=== PATIENT | male | born 1935 | race Caucasian/White ===

== ENCOUNTER 2023-02-18 14:20 | Inpatient (IN) | payer MEDICARE, OTHER ==
[~2023-02-18] VITALS: Ht 165.1 cm; Wt 70.3 kg
[2023-02-18] MEDS ORDERED: FEBU40TA PO (15:08)
[2023-02-18] MEDS ORDERED: DICL100G34 TP (15:08)
[2023-02-18] MEDS ORDERED: POTA8TAB3 PO (15:08)
[2023-02-18] MEDS ORDERED: CLOP75TA15 PO (15:08)
[2023-02-18] MEDS ORDERED: EPOE200011 SQ (15:08)
[2023-02-18] MEDS ORDERED: LANS30CA56 PO (15:08)
[2023-02-18] MEDS ORDERED: ASPI-1169 PO (15:08)
[2023-02-18] MEDS ORDERED: ESCI20TA PO (15:08)
[2023-02-18] MEDS ORDERED: EVOL140S2 SQ (15:08)
[2023-02-18] MEDS ORDERED: BUDE10.26 INH (15:08)
[2023-02-18] MEDS ORDERED: GUAI100S11 PO (15:08)
[2023-02-18] MEDS ORDERED: DOCU-141 PO (15:08)
[2023-02-18] MEDS ORDERED: LIPA1CAP15 PO (15:08)
[2023-02-18] MEDS ORDERED: BISA10SU11 RC (15:08)
[2023-02-18] MEDS ORDERED: NITR0.4T48 SL (15:08)
[2023-02-18] MEDS ORDERED: ACLI1AER INH (15:08)
[2023-02-18] MEDS ORDERED: LORA-258 PO (15:08)
[2023-02-18] MEDS ORDERED: NA P133E RC (15:08)
[2023-02-18] MEDS ORDERED: NYST15CR TP (15:08)
[2023-02-18] MEDS ORDERED: CARV10CP PO (15:08)
[2023-02-18] MEDS ORDERED: ACET-868 PO (15:08)
[2023-02-18] MEDS ORDERED: BISA5TAB10 PO (15:08)
[2023-02-18] MEDS ORDERED: BUME2TAB7 PO (15:08)
[2023-02-18] MEDS ORDERED: LINA5TAB PO (15:08)
[2023-02-18] MEDS ORDERED: ERGO500093 PO (15:08)
[2023-02-18] MEDS ORDERED: NITR1PAT65 TP (15:08)
[2023-02-18] MEDS ORDERED: AMLO-213 PO (15:08)
[2023-02-18] MEDS ORDERED: COLE625T9 PO (15:08)
[2023-02-18] MEDS ORDERED: IPRA3AMP23 IH (15:08)
[2023-02-18] MEDS ORDERED: MELA5TAB PO (15:08)
[2023-02-18] MEDS ORDERED: MAGN400O6 PO (15:08)
[2023-02-18] MEDS ORDERED: LINA290C PO (15:08)
[2023-02-18] MEDS ORDERED: TRAZ-182 PO (15:08)
[2023-02-18] MEDS ORDERED: RANO10003 PO (15:08)
[2023-02-18 15:16] LABS: BASOPHILS % (AUTO) 0.3 % (0.0-2.0); EOSINOPHILS % (AUTO) 0.4 % (0.0-6.0); HEMATOCRIT 37 % (39-51); HEMOGLOBIN 11.8 g/dL (13.5-17.5); LYMPHOCYTES # (AUTO) 1.6 K/uL (0.8-4.8); LYMPHOCYTES % (AUTO) 22.7 % (20.0-44.0); MEAN CORPUSCULAR HEMOGLOBIN 27 PG (26.0-33.0); MEAN CORPUSCULAR HGB CONC 32 g/dl (31.0-36.0); MEAN CORPUSCULAR VOLUME 84 fL (80-96); MONOCYTES # (AUTO) 0.5 K/uL (0.1-1.30); MONOCYTES % (AUTO) 7.5 % (2.0-12.0); NEUTROPHILS # (AUTO) 4.9 K/uL (1.8-8.9); NEUTROPHILS % (AUTO) 69.1 % (43.0-81.0); PLATELET COUNT (AUTO) 243 K/uL (150-450); RED BLOOD CELL COUNT(AUTO) 4.34 MIL/uL (4.5-6.0); WHITE BLOOD COUNT (AUTO) 7.1 K/uL (4.3-11.0)
[2023-02-18 15:30] LABS: CALCIUM, SERUM 9.7 mg/dL (8.5-10.1); CARBON DIOXIDE 27 mmol/L (21-32); CHLORIDE 100 mmol/L (98-107); CREATININE 1.4 mg/dL (0.6-1.3); GLUCOSE 166 mg/dL (74-106); POTASSIUM 3.6 mmol/L (3.5-5.1); SODIUM SERUM 137 mmol/L (136-145); UREA NITROGEN, BLOOD 19 mg/dL (7-18)
[2023-02-18 15:45] LABS: ALANINE AMINOTRANSFERASE 15 U/L (12-78); ALBUMIN 4.3 g/dL (3.4-5.0); ALKALINE PHOSPHATASE 63 U/L (46-116); ASPARTATE AMINOTRANSFERASE 14 U/L (15-37); BILIRUBIN,DIRECT 0.3 mg/dL (0.0-0.2); BILIRUBIN,TOTAL 1.3 mg/dL (0.2-1.0); TOTAL PROTEIN, SERUM 8.7 g/dL (6.4-8.2)
[2023-02-18 15:46] LABS: ACETAMINOPHEN <10 ug/ml (10-30); ALCOHOL, BLOOD < 3 mg/dL (0-10); SALICYLATE 0.3 mg/dL (2.8-20.0)
[2023-02-18] MEDS ORDERED: NA PHOS,M-B/NA PHOS,DI-BA 1 EA ENEMA RC PRN (16:30)
[2023-02-18] MEDS ORDERED: NITROGLYCERIN 0.4 MG/TAB BOTTLE SL PRN (16:30)
[2023-02-18] MEDS: ASPIRIN 81 MG TAB.CHEW PO SCH ×2 (16:30→19:50)
[2023-02-18] MEDS ORDERED: DEXTROSE 50%-WATER 50 ML DISP.SYRIN IV PRN (16:30)
[2023-02-18] MEDS ORDERED: WELCHOL XX SCH (16:30)
[2023-02-18] MEDS ORDERED: MAGNESIUM HYDROXIDE 30 ML UDC PO PRN ×2 (16:30→19:00)
[2023-02-18] MEDS ORDERED: IPRATROPIUM/ALBUTEROL INHALER IH PRN (16:30)
[2023-02-18] MEDS ORDERED: GUAIFENESIN 300 MG/15 ML UDC PO PRN (16:30)
[2023-02-18] MEDS ORDERED: ACETAMINOPHEN 325 MG TABLET PO PRN ×2 (16:30→19:00)
[2023-02-18] MEDS: BUMETANIDE (1 MG) 1 MG TABLET PO SCH ×2 (16:30→19:50)
[2023-02-18] MEDS ORDERED: BISACODYL SUPP (10 MG) 10 MG/SUPP.RECT SUPP.RECT RC PRN (16:30)
[2023-02-18] MEDS: BLOOD SUGAR DIAGNOSTIC 1 EACH STRIP IN SCH ×2 (17:30→21:40)
[2023-02-18 18:50] VITALS: BP 153/85; TEMP 98.1; O2SAT 100
[2023-02-18] MEDS ORDERED: MAG HYDROX/AL HYDROX/SIMETH 30 ML UDC PO PRN (19:00)
[2023-02-18] MEDS ORDERED: BLOOD SUGAR DIAGNOSTIC 1 EACH STRIP IN ONE (19:00)
[2023-02-18] MEDS: IPRATROPIUM NEB FS 0.5 MG/2.5 ML AMPUL.NEB NEB SCH (19:30)
[2023-02-18] MEDS: ALBUTEROL FS 2.5 MG/3 ML VIAL.NEB NEB SCH (19:30)
[2023-02-18] MEDS: BISACODYL (5 MG) 5 MG TABLET.DR PO SCH ×2 (19:50→19:55)
[2023-02-18] MEDS: ZOLPIDEM TARTRATE 5 MG TABLET PO PRN (20:03)
[2023-02-18] MEDS: CARVEDILOL 6.25 MG TABLET PO SCH (20:06)
[2023-02-18] MEDS: INSULIN REGULAR, HUMAN 100 UNIT/ML 3 ML VIAL SQ PRN (21:42)
[2023-02-19] VITALS (11 sets, daily range): BP systolic 121–160; BP diastolic 67–76; TEMP 98.4–98.7; O2SAT 93–100
[2023-02-19] MEDS: ALBUTEROL FS 2.5 MG/3 ML VIAL.NEB NEB SCH ×4 (00:36→20:20)
[2023-02-19] MEDS: IPRATROPIUM NEB FS 0.5 MG/2.5 ML AMPUL.NEB NEB SCH ×4 (00:36→20:20)
[2023-02-19] MEDS: LORAZEPAM 0.5 MG TABLET PO PRN ×3 (03:48→21:18)
[2023-02-19 07:49] LABS: ALANINE AMINOTRANSFERASE 15 U/L (12-78); ALBUMIN 3.8 g/dL (3.4-5.0); ALKALINE PHOSPHATASE 52 U/L (46-116); ASPARTATE AMINOTRANSFERASE 18 U/L (15-37); BILIRUBIN,TOTAL 1.2 mg/dL (0.2-1.0); CALCIUM, SERUM 9.3 mg/dL (8.5-10.1); CARBON DIOXIDE 25 mmol/L (21-32); CHLORIDE 101 mmol/L (98-107); CHOLESTEROL 205 mg/dL (<200); CREATININE 1.4 mg/dL (0.6-1.3); GLUCOSE 135 mg/dL (74-106); HDL CHOLESTEROL 68 mg/dL (40-60); LDL 112 mg/dL (0-99); POTASSIUM 3.5 mmol/L (3.5-5.1); SODIUM SERUM 136 mmol/L (136-145); TOTAL PROTEIN, SERUM 7.7 g/dL (6.4-8.2); TRIGLYCERIDES 52 mg/dL (30-150); UREA NITROGEN, BLOOD 24 mg/dL (7-18)
[2023-02-19] MEDS ORDERED: POTASSIUM CHLORIDE 10 MEQ TABLET.SA PO SCH (09:00)
[2023-02-19] MEDS: BLOOD SUGAR DIAGNOSTIC 1 EACH STRIP IN SCH ×4 (09:44→22:05)
[2023-02-19] MEDS: LIPASE/PROTEASE/AMYLASE 1 EACH CAPSULE.DR PO SCH ×3 (09:44→17:58)
[2023-02-19] MEDS: ASPIRIN 81 MG TAB.CHEW PO SCH (09:45)
[2023-02-19] MEDS: DOCUSATE SODIUM 100 MG CAPSULE PO SCH (09:45)
[2023-02-19] MEDS: CARVEDILOL 6.25 MG TABLET PO SCH ×2 (09:45→21:18)
[2023-02-19] MEDS: BISACODYL (5 MG) 5 MG TABLET.DR PO SCH ×2 (09:45→16:21)
[2023-02-19] MEDS: CLOPIDOGREL BISULFATE 75 MG TABLET PO SCH (09:46)
[2023-02-19] MEDS: NITROGLYCERIN PATCH 0.2 MG/HR PATCH.TD24 TD SCH (09:51)
[2023-02-19] MEDS: LINAGLIPTIN 5 MG TABLET PO SCH (09:51)
[2023-02-19] MEDS: AMLODIPINE BESYLATE 10 MG TABLET PO SCH (09:52)
[2023-02-19 11:49] LABS: THYROID STIMULATING HORMONE 1.158 uIU/mL (0.358-3.74)
[2023-02-19] MEDS: INSULIN REGULAR, HUMAN 100 UNIT/ML 3 ML VIAL SQ PRN ×2 (11:59→22:07)
[2023-02-19] MEDS: ESCITALOPRAM OXALATE (10 MG) 10 MG TABLET PO SCH (12:18)
[2023-02-19] MEDS: RANOLAZINE 500 MG TAB.ER.12H PO SCH (21:00)
[2023-02-19] MEDS: MIRTAZAPINE 15 MG TABLET PO SCH (21:18)
[2023-02-19] MEDS: ZOLPIDEM TARTRATE 5 MG TABLET PO PRN (22:56)
[2023-02-20] MEDS: IPRATROPIUM NEB FS 0.5 MG/2.5 ML AMPUL.NEB NEB SCH ×4 (01:30→19:30)
[2023-02-20] MEDS: ALBUTEROL FS 2.5 MG/3 ML VIAL.NEB NEB SCH ×5 (01:30→20:24)
[2023-02-20 05:07] LABS: FOLIC ACID 11.5 ng/mL (>3.0)
[2023-02-20] MEDS: BLOOD SUGAR DIAGNOSTIC 1 EACH STRIP IN SCH ×4 (07:30→21:56)
[2023-02-20 08:00] VITALS: BP 148/77; TEMP 97.7; O2SAT 98
[2023-02-20] MEDS: LINAGLIPTIN 5 MG TABLET PO SCH (08:23)
[2023-02-20] MEDS: PANTOPRAZOLE 40 MG TABLET.DR PO SCH (08:23)
[2023-02-20] MEDS: DOCUSATE SODIUM 100 MG CAPSULE PO SCH (08:23)
[2023-02-20] MEDS: CARVEDILOL 6.25 MG TABLET PO SCH ×2 (08:24→20:44)
[2023-02-20] MEDS: LIPASE/PROTEASE/AMYLASE 1 EACH CAPSULE.DR PO SCH ×3 (08:24→17:20)
[2023-02-20] MEDS: RANOLAZINE 500 MG TAB.ER.12H PO SCH ×2 (08:25→21:07)
[2023-02-20] MEDS: BISACODYL (5 MG) 5 MG TABLET.DR PO SCH ×2 (08:25→17:20)
[2023-02-20] MEDS: ESCITALOPRAM OXALATE (10 MG) 10 MG TABLET PO SCH (08:25)
[2023-02-20] MEDS: AMLODIPINE BESYLATE 10 MG TABLET PO SCH (08:25)
[2023-02-20] MEDS: CLOPIDOGREL BISULFATE 75 MG TABLET PO SCH (08:25)
[2023-02-20] MEDS ORDERED: Medication Not On Formulary EA (Linaclotide (Linzess) 290 MCG) PO SCH (09:00)
[2023-02-20] MEDS: NITROGLYCERIN PATCH 0.2 MG/HR PATCH.TD24 TD SCH (10:06)
[2023-02-20 13:35] VITALS: O2SAT 98
[2023-02-20 13:45] VITALS: O2SAT 98; O2SAT 99
[2023-02-20 16:00] VITALS: BP 120/71; TEMP 97.8; O2SAT 98
[2023-02-20] MEDS: BUMETANIDE (1 MG) 1 MG TABLET PO SCH (16:50)
[2023-02-20] MEDS: ASPIRIN 81 MG TAB.CHEW PO SCH (16:50)
[2023-02-20 20:55] VITALS: BP 135/80; TEMP 98.6; O2SAT 97
[2023-02-20] MEDS: MIRTAZAPINE 15 MG TABLET PO SCH (21:07)
[2023-02-20] MEDS: ZOLPIDEM TARTRATE 5 MG TABLET PO PRN (21:31)
[2023-02-20] MEDS: INSULIN REGULAR, HUMAN 100 UNIT/ML 3 ML VIAL SQ PRN (21:52)
[2023-02-21] MEDS: ALBUTEROL FS 2.5 MG/3 ML VIAL.NEB NEB SCH ×4 (01:30→19:30)
[2023-02-21] MEDS: IPRATROPIUM NEB FS 0.5 MG/2.5 ML AMPUL.NEB NEB SCH ×4 (01:30→19:30)
[2023-02-21] MEDS: BLOOD SUGAR DIAGNOSTIC 1 EACH STRIP IN SCH ×4 (06:52→22:05)
[2023-02-21] MEDS: INSULIN REGULAR, HUMAN 100 UNIT/ML 3 ML VIAL SQ PRN ×3 (06:53→17:29)
[2023-02-21] MEDS: PANTOPRAZOLE 40 MG TABLET.DR PO SCH (07:26)
[2023-02-21 08:00] VITALS: BP 119/73; TEMP 98.1; O2SAT 99
[2023-02-21] MEDS: LIPASE/PROTEASE/AMYLASE 1 EACH CAPSULE.DR PO SCH ×3 (08:13→17:25)
[2023-02-21] MEDS: CLOPIDOGREL BISULFATE 75 MG TABLET PO SCH (08:13)
[2023-02-21] MEDS: AMLODIPINE BESYLATE 10 MG TABLET PO SCH (08:13)
[2023-02-21] MEDS: BISACODYL (5 MG) 5 MG TABLET.DR PO SCH ×2 (08:13→17:24)
[2023-02-21] MEDS: RANOLAZINE 500 MG TAB.ER.12H PO SCH ×2 (08:13→20:51)
[2023-02-21] MEDS: ESCITALOPRAM OXALATE (10 MG) 10 MG TABLET PO SCH (08:14)
[2023-02-21] MEDS: CARVEDILOL 6.25 MG TABLET PO SCH ×2 (08:14→20:50)
[2023-02-21] MEDS: DOCUSATE SODIUM 100 MG CAPSULE PO SCH (08:14)
[2023-02-21] MEDS: LINAGLIPTIN 5 MG TABLET PO SCH (08:14)
[2023-02-21] MEDS: NITROGLYCERIN PATCH 0.2 MG/HR PATCH.TD24 TD SCH (08:17)
[2023-02-21 16:00] VITALS: BP 113/60; TEMP 98.2; O2SAT 96
[2023-02-21] MEDS: ZOLPIDEM TARTRATE 5 MG TABLET PO PRN (19:25)
[2023-02-21 20:00] VITALS: BP 150/73; TEMP 98.4; O2SAT 95
[2023-02-21] MEDS: MIRTAZAPINE 15 MG TABLET PO SCH (21:52)
[2023-02-22] MEDS: ALBUTEROL FS 2.5 MG/3 ML VIAL.NEB NEB SCH ×4 (00:58→19:30)
[2023-02-22] MEDS: IPRATROPIUM NEB FS 0.5 MG/2.5 ML AMPUL.NEB NEB SCH ×4 (00:58→19:30)
[2023-02-22] MEDS: BLOOD SUGAR DIAGNOSTIC 1 EACH STRIP IN SCH ×4 (07:32→21:59)
[2023-02-22] MEDS: INSULIN REGULAR, HUMAN 100 UNIT/ML 3 ML VIAL SQ PRN ×3 (07:33→22:02)
[2023-02-22] MEDS: PANTOPRAZOLE 40 MG TABLET.DR PO SCH (07:56)
[2023-02-22] MEDS: LIPASE/PROTEASE/AMYLASE 1 EACH CAPSULE.DR PO SCH ×3 (07:56→17:06)
[2023-02-22 08:00] VITALS: BP 119/63; TEMP 98; O2SAT 98
[2023-02-22] MEDS: DOCUSATE SODIUM 100 MG CAPSULE PO SCH (08:38)
[2023-02-22] MEDS: CLOPIDOGREL BISULFATE 75 MG TABLET PO SCH (08:38)
[2023-02-22] MEDS: RANOLAZINE 500 MG TAB.ER.12H PO SCH ×2 (08:38→21:12)
[2023-02-22] MEDS: ESCITALOPRAM OXALATE (10 MG) 10 MG TABLET PO SCH (08:39)
[2023-02-22] MEDS: CARVEDILOL 6.25 MG TABLET PO SCH ×2 (08:39→21:12)
[2023-02-22] MEDS: AMLODIPINE BESYLATE 10 MG TABLET PO SCH (08:39)
[2023-02-22] MEDS: NITROGLYCERIN PATCH 0.2 MG/HR PATCH.TD24 TD SCH (08:43)
[2023-02-22] MEDS: BISACODYL (5 MG) 5 MG TABLET.DR PO SCH ×2 (08:43→17:06)
[2023-02-22] MEDS: LINAGLIPTIN 5 MG TABLET PO SCH (08:43)
[2023-02-22 16:00] VITALS: BP 122/58; TEMP 97.6; O2SAT 100
[2023-02-22] MEDS: BUMETANIDE (1 MG) 1 MG TABLET PO SCH (17:04)
[2023-02-22] MEDS: ASPIRIN 81 MG TAB.CHEW PO SCH (17:04)
[2023-02-22] MEDS: ERGOCALCIFEROL (VITAMIN D 2) 50,000 UNIT CAPSULE PO SCH (17:04)
[2023-02-22 20:00] VITALS: BP 138/67; TEMP 97.8; O2SAT 99
[2023-02-22] MEDS: MIRTAZAPINE 15 MG TABLET PO SCH (21:13)
[2023-02-23] MEDS: ALBUTEROL FS 2.5 MG/3 ML VIAL.NEB NEB SCH ×4 (01:30→20:26)
[2023-02-23] MEDS: IPRATROPIUM NEB FS 0.5 MG/2.5 ML AMPUL.NEB NEB SCH ×4 (01:30→20:26)
[2023-02-23 07:19] LABS: BASOPHILS % (AUTO) 0.3 % (0.0-2.0); EOSINOPHILS # (AUTO) 0.2 K/uL (0.0-0.7); EOSINOPHILS % (AUTO) 3.1 % (0.0-6.0); HEMATOCRIT 33 % (39-51); HEMOGLOBIN 10.5 g/dL (13.5-17.5); LYMPHOCYTES # (AUTO) 1.5 K/uL (0.8-4.8); LYMPHOCYTES % (AUTO) 28.1 % (20.0-44.0); MEAN CORPUSCULAR HEMOGLOBIN 27 PG (26.0-33.0); MEAN CORPUSCULAR HGB CONC 32 g/dl (31.0-36.0); MEAN CORPUSCULAR VOLUME 85 fL (80-96); MONOCYTES # (AUTO) 0.5 K/uL (0.1-1.30); MONOCYTES % (AUTO) 8.7 % (2.0-12.0); NEUTROPHILS # (AUTO) 3.2 K/uL (1.8-8.9); NEUTROPHILS % (AUTO) 59.8 % (43.0-81.0); PLATELET COUNT (AUTO) 178 K/uL (150-450); RED BLOOD CELL COUNT(AUTO) 3.85 MIL/uL (4.5-6.0); RED CELL DISTRIBUTION WIDTH 18.7 % (11.5-15.0); WHITE BLOOD COUNT (AUTO) 5.3 K/uL (4.3-11.0)
[2023-02-23 07:56] LABS: CREATINE KINASE, TOTAL 39 U/L (39-308)
[2023-02-23 07:59] LABS: ALANINE AMINOTRANSFERASE 14 U/L (12-78); ALBUMIN 3.1 g/dL (3.4-5.0); ALKALINE PHOSPHATASE 49 U/L (46-116); ASPARTATE AMINOTRANSFERASE 11 U/L (15-37); BILIRUBIN,TOTAL 0.9 mg/dL (0.2-1.0); CARBON DIOXIDE 29 mmol/L (21-32); CHLORIDE 101 mmol/L (98-107); CREATININE 1.6 mg/dL (0.6-1.3); GLUCOSE 100 mg/dL (74-106); MAGNESIUM 1.8 mg/dL (1.8-2.4); PHOSPHORUS 4.1 mg/dL (2.5-4.9); POTASSIUM 3.1 mmol/L (3.5-5.1); SODIUM SERUM 140 mmol/L (136-145); TOTAL PROTEIN, SERUM 6.6 g/dL (6.4-8.2); UREA NITROGEN, BLOOD 31 mg/dL (7-18)
[2023-02-23 08:00] VITALS: BP 153/69; TEMP 97.8; O2SAT 97
[2023-02-23] MEDS: BLOOD SUGAR DIAGNOSTIC 1 EACH STRIP IN SCH ×4 (08:15→22:44)
[2023-02-23] MEDS: LIPASE/PROTEASE/AMYLASE 1 EACH CAPSULE.DR PO SCH ×3 (08:18→17:21)
[2023-02-23] MEDS: ESCITALOPRAM OXALATE (10 MG) 10 MG TABLET PO SCH (08:19)
[2023-02-23] MEDS: LINAGLIPTIN 5 MG TABLET PO SCH (08:19)
[2023-02-23] MEDS: PANTOPRAZOLE 40 MG TABLET.DR PO SCH (08:19)
[2023-02-23] MEDS: CARVEDILOL 6.25 MG TABLET PO SCH ×2 (08:19→20:36)
[2023-02-23] MEDS: DOCUSATE SODIUM 100 MG CAPSULE PO SCH (08:19)
[2023-02-23] MEDS: AMLODIPINE BESYLATE 10 MG TABLET PO SCH (08:19)
[2023-02-23] MEDS: CLOPIDOGREL BISULFATE 75 MG TABLET PO SCH (08:19)
[2023-02-23] MEDS: BISACODYL (5 MG) 5 MG TABLET.DR PO SCH ×2 (08:19→17:21)
[2023-02-23] MEDS: RANOLAZINE 500 MG TAB.ER.12H PO SCH ×2 (08:25→20:56)
[2023-02-23] MEDS: NITROGLYCERIN PATCH 0.2 MG/HR PATCH.TD24 TD SCH (08:26)
[2023-02-23 16:00] VITALS: BP 143/68; TEMP 97.8; O2SAT 98
[2023-02-23] MEDS: ZOLPIDEM TARTRATE 5 MG TABLET PO PRN ×2 (20:02→21:23)
[2023-02-23 20:18] VITALS: BP 138/61; TEMP 97.9; O2SAT 98
[2023-02-23 20:26] VITALS: O2SAT 95
[2023-02-23 20:40] VITALS: O2SAT 98
[2023-02-23] MEDS: MIRTAZAPINE 15 MG TABLET PO SCH (22:20)
[2023-02-23] MEDS: INSULIN REGULAR, HUMAN 100 UNIT/ML 3 ML VIAL SQ PRN (22:47)
[2023-02-24] MEDS: IPRATROPIUM NEB FS 0.5 MG/2.5 ML AMPUL.NEB NEB SCH ×4 (01:30→20:11)
[2023-02-24] MEDS: ALBUTEROL FS 2.5 MG/3 ML VIAL.NEB NEB SCH ×4 (01:30→20:11)
[2023-02-24] MEDS: LORAZEPAM 0.5 MG TABLET PO PRN (02:57)
[2023-02-24] MEDS: BLOOD SUGAR DIAGNOSTIC 1 EACH STRIP IN SCH ×4 (07:46→22:22)
[2023-02-24] MEDS: PANTOPRAZOLE 40 MG TABLET.DR PO SCH (07:46)
[2023-02-24 08:00] VITALS: BP 155/72; TEMP 98; O2SAT 99
[2023-02-24] MEDS: INSULIN REGULAR, HUMAN 100 UNIT/ML 3 ML VIAL SQ PRN ×4 (08:06→22:26)
[2023-02-24 08:07] LABS: BASOPHILS % (AUTO) 0.3 % (0.0-2.0); EOSINOPHILS # (AUTO) 0.1 K/uL (0.0-0.7); EOSINOPHILS % (AUTO) 1.3 % (0.0-6.0); HEMATOCRIT 32 % (39-51); HEMOGLOBIN 10.5 g/dL (13.5-17.5); LYMPHOCYTES # (AUTO) 1.5 K/uL (0.8-4.8); LYMPHOCYTES % (AUTO) 21.1 % (20.0-44.0); MEAN CORPUSCULAR HEMOGLOBIN 28 PG (26.0-33.0); MEAN CORPUSCULAR HGB CONC 33 g/dl (31.0-36.0); MEAN CORPUSCULAR VOLUME 84 fL (80-96); MONOCYTES # (AUTO) 0.6 K/uL (0.1-1.30); MONOCYTES % (AUTO) 8.7 % (2.0-12.0); NEUTROPHILS # (AUTO) 4.8 K/uL (1.8-8.9); NEUTROPHILS % (AUTO) 68.6 % (43.0-81.0); PLATELET COUNT (AUTO) 201 K/uL (150-450); RED BLOOD CELL COUNT(AUTO) 3.79 MIL/uL (4.5-6.0); RED CELL DISTRIBUTION WIDTH 18.9 % (11.5-15.0); WHITE BLOOD COUNT (AUTO) 6.9 K/uL (4.3-11.0)
[2023-02-24 08:21] LABS: ALANINE AMINOTRANSFERASE 14 U/L (12-78); ALBUMIN 3.5 g/dL (3.4-5.0); ALKALINE PHOSPHATASE 47 U/L (46-116); ASPARTATE AMINOTRANSFERASE 11 U/L (15-37); BILIRUBIN,TOTAL 1.1 mg/dL (0.2-1.0); CALCIUM, SERUM 9.1 mg/dL (8.5-10.1); CARBON DIOXIDE 27 mmol/L (21-32); CHLORIDE 99 mmol/L (98-107); CREATININE 1.7 mg/dL (0.6-1.3); GLUCOSE 112 mg/dL (74-106); POTASSIUM 3.3 mmol/L (3.5-5.1); SODIUM SERUM 138 mmol/L (136-145); TOTAL PROTEIN, SERUM 7.2 g/dL (6.4-8.2); UREA NITROGEN, BLOOD 31 mg/dL (7-18)
[2023-02-24] MEDS: ESCITALOPRAM OXALATE (10 MG) 10 MG TABLET PO SCH (08:24)
[2023-02-24] MEDS: LIPASE/PROTEASE/AMYLASE 1 EACH CAPSULE.DR PO SCH ×3 (08:24→17:08)
[2023-02-24] MEDS: CLOPIDOGREL BISULFATE 75 MG TABLET PO SCH (08:24)
[2023-02-24] MEDS: LINAGLIPTIN 5 MG TABLET PO SCH (08:24)
[2023-02-24] MEDS: DOCUSATE SODIUM 100 MG CAPSULE PO SCH (08:24)
[2023-02-24] MEDS: BISACODYL (5 MG) 5 MG TABLET.DR PO SCH ×2 (08:24→17:08)
[2023-02-24] MEDS: NITROGLYCERIN PATCH 0.2 MG/HR PATCH.TD24 TD SCH (08:25)
[2023-02-24] MEDS: AMLODIPINE BESYLATE 10 MG TABLET PO SCH (08:25)
[2023-02-24] MEDS: CARVEDILOL 6.25 MG TABLET PO SCH ×2 (08:25→20:36)
[2023-02-24] MEDS: RANOLAZINE 500 MG TAB.ER.12H PO SCH ×2 (09:43→20:36)
[2023-02-24] MEDS ORDERED: POTASSIUM CHLORIDE 20 MEQ TAB.PRT.SR PO ONE (10:00)
[2023-02-24 16:00] VITALS: BP 115/69; TEMP 98.1; O2SAT 98
[2023-02-24 20:13] VITALS: O2SAT 96
[2023-02-24 20:28] VITALS: O2SAT 98
[2023-02-24] MEDS: MIRTAZAPINE 15 MG TABLET PO SCH (22:13)
[2023-02-25] MEDS: ZOLPIDEM TARTRATE 5 MG TABLET PO PRN (01:17)
[2023-02-25] MEDS: ALBUTEROL FS 2.5 MG/3 ML VIAL.NEB NEB SCH ×4 (01:30→20:18)
[2023-02-25] MEDS: IPRATROPIUM NEB FS 0.5 MG/2.5 ML AMPUL.NEB NEB SCH ×4 (01:30→20:18)
[2023-02-25 07:07] LABS: PTH, INTACT 58 pg/mL (15-65)
[2023-02-25] MEDS: BLOOD SUGAR DIAGNOSTIC 1 EACH STRIP IN SCH ×4 (07:58→21:42)
[2023-02-25 08:00] VITALS: BP 144/64; TEMP 98.6; O2SAT 98
[2023-02-25] MEDS: PANTOPRAZOLE 40 MG TABLET.DR PO SCH (08:05)
[2023-02-25] MEDS: LIPASE/PROTEASE/AMYLASE 1 EACH CAPSULE.DR PO SCH ×3 (08:08→17:23)
[2023-02-25] MEDS: RANOLAZINE 500 MG TAB.ER.12H PO SCH ×2 (09:34→20:57)
[2023-02-25] MEDS: ESCITALOPRAM OXALATE (10 MG) 10 MG TABLET PO SCH (09:34)
[2023-02-25] MEDS: LINAGLIPTIN 5 MG TABLET PO SCH (09:34)
[2023-02-25] MEDS: BISACODYL (5 MG) 5 MG TABLET.DR PO SCH ×2 (09:34→16:53)
[2023-02-25] MEDS: CARVEDILOL 6.25 MG TABLET PO SCH ×2 (09:34→20:57)
[2023-02-25] MEDS: AMLODIPINE BESYLATE 10 MG TABLET PO SCH (09:35)
[2023-02-25] MEDS: DOCUSATE SODIUM 100 MG CAPSULE PO SCH (09:35)
[2023-02-25] MEDS: CLOPIDOGREL BISULFATE 75 MG TABLET PO SCH (09:36)
[2023-02-25] MEDS: NITROGLYCERIN PATCH 0.2 MG/HR PATCH.TD24 TD SCH (09:42)
[2023-02-25 16:00] VITALS: BP 140/66; TEMP 98.7; O2SAT 100
[2023-02-25] MEDS: BUMETANIDE (1 MG) 1 MG TABLET PO SCH (16:56)
[2023-02-25] MEDS: ASPIRIN 81 MG TAB.CHEW PO SCH (16:57)
[2023-02-25 17:14] LABS: BASOPHILS % (AUTO) 0.3 % (0.0-2.0); EOSINOPHILS # (AUTO) 0.1 K/uL (0.0-0.7); EOSINOPHILS % (AUTO) 1.9 % (0.0-6.0); HEMATOCRIT 33 % (39-51); HEMOGLOBIN 10.5 g/dL (13.5-17.5); LYMPHOCYTES # (AUTO) 1.1 K/uL (0.8-4.8); LYMPHOCYTES % (AUTO) 26.3 % (20.0-44.0); MEAN CORPUSCULAR HEMOGLOBIN 27 PG (26.0-33.0); MEAN CORPUSCULAR HGB CONC 32 g/dl (31.0-36.0); MEAN CORPUSCULAR VOLUME 85 fL (80-96); MONOCYTES # (AUTO) 0.4 K/uL (0.1-1.30); MONOCYTES % (AUTO) 9.2 % (2.0-12.0); NEUTROPHILS # (AUTO) 2.6 K/uL (1.8-8.9); NEUTROPHILS % (AUTO) 62.3 % (43.0-81.0); PLATELET COUNT (AUTO) 165 K/uL (150-450); RED BLOOD CELL COUNT(AUTO) 3.84 MIL/uL (4.5-6.0); RED CELL DISTRIBUTION WIDTH 18.6 % (11.5-15.0); WHITE BLOOD COUNT (AUTO) 4.2 K/uL (4.3-11.0)
[2023-02-25] MEDS: GLUCERNA SHAKE 237 ML CAN PO SCH (17:23)
[2023-02-25 17:31] LABS: ALANINE AMINOTRANSFERASE 11 U/L (12-78); ALKALINE PHOSPHATASE 54 U/L (46-116); ASPARTATE AMINOTRANSFERASE 12 U/L (15-37); BILIRUBIN,TOTAL 0.9 mg/dL (0.2-1.0); CALCIUM, SERUM 8.6 mg/dL (8.5-10.1); CARBON DIOXIDE 26 mmol/L (21-32); CHLORIDE 100 mmol/L (98-107); CREATININE 1.5 mg/dL (0.6-1.3); GLUCOSE 154 mg/dL (74-106); POTASSIUM 3.8 mmol/L (3.5-5.1); SODIUM SERUM 135 mmol/L (136-145); TOTAL PROTEIN, SERUM 6.5 g/dL (6.4-8.2); UREA NITROGEN, BLOOD 25 mg/dL (7-18)
[2023-02-25 20:24] VITALS: BP 118/63; TEMP 98.2; O2SAT 98
[2023-02-25 20:32] VITALS: O2SAT 97
[2023-02-25 20:43] VITALS: O2SAT 98
[2023-02-25] MEDS: MIRTAZAPINE 15 MG TABLET PO SCH (21:31)
[2023-02-25] MEDS: INSULIN REGULAR, HUMAN 100 UNIT/ML 3 ML VIAL SQ PRN (21:46)
[2023-02-26] MEDS: ALBUTEROL FS 2.5 MG/3 ML VIAL.NEB NEB SCH ×4 (01:30→20:28)
[2023-02-26] MEDS: IPRATROPIUM NEB FS 0.5 MG/2.5 ML AMPUL.NEB NEB SCH ×4 (01:30→20:28)
[2023-02-26 07:33] LABS: EOSINOPHILS # (AUTO) 0.8 K/uL (0.0-0.7); EOSINOPHILS % (AUTO) 16.7 % (0.0-6.0); HEMATOCRIT 33 % (39-51); HEMOGLOBIN 10.6 g/dL (13.5-17.5); LYMPHOCYTES # (AUTO) 2.5 K/uL (0.8-4.8); LYMPHOCYTES % (AUTO) 49.9 % (20.0-44.0); MEAN CORPUSCULAR HEMOGLOBIN 28 PG (26.0-33.0); MEAN CORPUSCULAR HGB CONC 33 g/dl (31.0-36.0); MEAN CORPUSCULAR VOLUME 85 fL (80-96); MONOCYTES # (AUTO) 0.8 K/uL (0.1-1.30); MONOCYTES % (AUTO) 16.7 % (2.0-12.0); NEUTROPHILS # (AUTO) 0.8 K/uL (1.8-8.9); NEUTROPHILS % (AUTO) 16.7 % (43.0-81.0); PLATELET COUNT (AUTO) 190 K/uL (150-450); RED BLOOD CELL COUNT(AUTO) 3.86 MIL/uL (4.5-6.0); RED CELL DISTRIBUTION WIDTH 18.7 % (11.5-15.0); WHITE BLOOD COUNT (AUTO) 4.9 K/uL (4.3-11.0)
[2023-02-26] MEDS: PANTOPRAZOLE 40 MG TABLET.DR PO SCH (07:46)
[2023-02-26 07:52] LABS: ALANINE AMINOTRANSFERASE 10 U/L (12-78); ALBUMIN 3.3 g/dL (3.4-5.0); ALKALINE PHOSPHATASE 55 U/L (46-116); ASPARTATE AMINOTRANSFERASE 13 U/L (15-37); BILIRUBIN,TOTAL 0.9 mg/dL (0.2-1.0); CALCIUM, SERUM 8.7 mg/dL (8.5-10.1); CARBON DIOXIDE 27 mmol/L (21-32); CHLORIDE 99 mmol/L (98-107); CREATININE 1.4 mg/dL (0.6-1.3); GLUCOSE 103 mg/dL (74-106); POTASSIUM 3.3 mmol/L (3.5-5.1); SODIUM SERUM 136 mmol/L (136-145); TOTAL PROTEIN, SERUM 6.8 g/dL (6.4-8.2); UREA NITROGEN, BLOOD 24 mg/dL (7-18)
[2023-02-26 08:00] VITALS: BP 138/61; TEMP 98; O2SAT 97
[2023-02-26] MEDS: GLUCERNA SHAKE 237 ML CAN PO SCH ×2 (08:00→17:00)
[2023-02-26] MEDS: BLOOD SUGAR DIAGNOSTIC 1 EACH STRIP IN SCH ×4 (08:02→21:42)
[2023-02-26] MEDS: LIPASE/PROTEASE/AMYLASE 1 EACH CAPSULE.DR PO SCH ×3 (08:04→17:33)
[2023-02-26 08:11] LABS: *SPE ALBUMIN 2.9 g/dL (2.9-4.4); *SPE ALPHA-1-GLOBULIN 0.3 g/dL (0.0-0.4); *SPE ALPHA-2-GLOBULIN 0.8 g/dL (0.4-1.0); *SPE BETA GLOBULIN 0.9 g/dL (0.7-1.3); *SPE M-SPIKE Not Observed g/dL (Not Observed); *SPE PROTEIN TOTAL 5.9 g/dL (6.0-8.5)
[2023-02-26 08:27] VITALS: O2SAT 95
[2023-02-26 08:37] VITALS: O2SAT 98
[2023-02-26] MEDS: BISACODYL (5 MG) 5 MG TABLET.DR PO SCH ×2 (09:35→17:34)
[2023-02-26] MEDS: CLOPIDOGREL BISULFATE 75 MG TABLET PO SCH (09:35)
[2023-02-26] MEDS: DOCUSATE SODIUM 100 MG CAPSULE PO SCH (09:35)
[2023-02-26] MEDS: LINAGLIPTIN 5 MG TABLET PO SCH (09:35)
[2023-02-26] MEDS: RANOLAZINE 500 MG TAB.ER.12H PO SCH ×2 (09:35→21:00)
[2023-02-26] MEDS: ESCITALOPRAM OXALATE (10 MG) 10 MG TABLET PO SCH (09:36)
[2023-02-26] MEDS: CARVEDILOL 6.25 MG TABLET PO SCH ×2 (09:36→20:02)
[2023-02-26] MEDS: AMLODIPINE BESYLATE 10 MG TABLET PO SCH (09:36)
[2023-02-26] MEDS: NITROGLYCERIN PATCH 0.2 MG/HR PATCH.TD24 TD SCH (09:38)
[2023-02-26] MEDS ORDERED: POTASSIUM CHLORIDE 20 MEQ POWDER PACKET PO ONE (11:00)
[2023-02-26 16:00] VITALS: BP 100/55; TEMP 97.7; O2SAT 100
[2023-02-26 17:28] LABS: EOSINOPHILS % (MANUAL) 1 % (0-4); LYMPHOCYTES % (MANUAL) 29 % (16-48); MONOCYTES % (MANUAL) 2 % (0-11.0); NEUTROPHILS % (MANUAL) 68 (42-76)
[2023-02-26 17:29] LABS: PLATELET ESTIMATE ADEQUATE
[2023-02-26 19:51] VITALS: BP 112/60; TEMP 98.4; O2SAT 100
[2023-02-26] MEDS: ZOLPIDEM TARTRATE 5 MG TABLET PO PRN (20:02)
[2023-02-26] MEDS: MIRTAZAPINE 15 MG TABLET PO SCH (21:42)
[2023-02-26] MEDS: LORAZEPAM 0.5 MG TABLET PO PRN (21:43)
[2023-02-26] MEDS: INSULIN REGULAR, HUMAN 100 UNIT/ML 3 ML VIAL SQ PRN (21:46)
[2023-02-27] MEDS: ALBUTEROL FS 2.5 MG/3 ML VIAL.NEB NEB SCH ×4 (01:30→19:30)
[2023-02-27] MEDS: IPRATROPIUM NEB FS 0.5 MG/2.5 ML AMPUL.NEB NEB SCH ×4 (01:30→19:30)
[2023-02-27] MEDS: BLOOD SUGAR DIAGNOSTIC 1 EACH STRIP IN SCH ×4 (07:54→22:00)
[2023-02-27 07:59] LABS: BASOPHILS % (AUTO) 0.2 % (0.0-2.0); EOSINOPHILS # (AUTO) 0.1 K/uL (0.0-0.7); EOSINOPHILS % (AUTO) 1.5 % (0.0-6.0); HEMATOCRIT 33 % (39-51); HEMOGLOBIN 10.8 g/dL (13.5-17.5); LYMPHOCYTES # (AUTO) 1.1 K/uL (0.8-4.8); MEAN CORPUSCULAR HEMOGLOBIN 28 PG (26.0-33.0); MEAN CORPUSCULAR HGB CONC 33 g/dl (31.0-36.0); MEAN CORPUSCULAR VOLUME 84 fL (80-96); MONOCYTES # (AUTO) 0.6 K/uL (0.1-1.30); MONOCYTES % (AUTO) 10.1 % (2.0-12.0); NEUTROPHILS # (AUTO) 3.7 K/uL (1.8-8.9); NEUTROPHILS % (AUTO) 67.2 % (43.0-81.0); PLATELET COUNT (AUTO) 179 K/uL (150-450); RED BLOOD CELL COUNT(AUTO) 3.91 MIL/uL (4.5-6.0); RED CELL DISTRIBUTION WIDTH 18.5 % (11.5-15.0); WHITE BLOOD COUNT (AUTO) 5.5 K/uL (4.3-11.0)
[2023-02-27 08:00] VITALS: BP 144/79; TEMP 97.7; O2SAT 97
[2023-02-27 08:16] LABS: ALANINE AMINOTRANSFERASE 14 U/L (12-78); ALBUMIN 3.5 g/dL (3.4-5.0); ALKALINE PHOSPHATASE 53 U/L (46-116); ASPARTATE AMINOTRANSFERASE 11 U/L (15-37); BILIRUBIN,TOTAL 0.9 mg/dL (0.2-1.0); CALCIUM, SERUM 8.9 mg/dL (8.5-10.1); CARBON DIOXIDE 27 mmol/L (21-32); CHLORIDE 98 mmol/L (98-107); CREATININE 1.7 mg/dL (0.6-1.3); GLUCOSE 116 mg/dL (74-106); POTASSIUM 3.3 mmol/L (3.5-5.1); SODIUM SERUM 135 mmol/L (136-145); UREA NITROGEN, BLOOD 25 mg/dL (7-18)
[2023-02-27] MEDS: PANTOPRAZOLE 40 MG TABLET.DR PO SCH (08:29)
[2023-02-27] MEDS: LINAGLIPTIN 5 MG TABLET PO SCH (08:44)
[2023-02-27] MEDS: GLUCERNA SHAKE 237 ML CAN PO SCH ×3 (08:45→17:21)
[2023-02-27] MEDS: LIPASE/PROTEASE/AMYLASE 1 EACH CAPSULE.DR PO SCH ×3 (08:45→17:20)
[2023-02-27] MEDS: CLOPIDOGREL BISULFATE 75 MG TABLET PO SCH (08:46)
[2023-02-27] MEDS: AMLODIPINE BESYLATE 10 MG TABLET PO SCH (08:46)
[2023-02-27] MEDS: DOCUSATE SODIUM 100 MG CAPSULE PO SCH (08:47)
[2023-02-27] MEDS: ESCITALOPRAM OXALATE (10 MG) 10 MG TABLET PO SCH (08:47)
[2023-02-27] MEDS: BISACODYL (5 MG) 5 MG TABLET.DR PO SCH ×3 (08:48→17:21)
[2023-02-27] MEDS: CARVEDILOL 6.25 MG TABLET PO SCH ×2 (08:48→20:32)
[2023-02-27] MEDS: RANOLAZINE 500 MG TAB.ER.12H PO SCH ×2 (09:00→20:31)
[2023-02-27] MEDS ORDERED: POTASSIUM CHLORIDE 10 MEQ TABLET.SA PO ONE (09:00)
[2023-02-27] MEDS: NITROGLYCERIN PATCH 0.2 MG/HR PATCH.TD24 TD SCH (09:00)
[2023-02-27 16:00] VITALS: BP 132/64; TEMP 97.9; O2SAT 98
[2023-02-27] MEDS: BUMETANIDE (1 MG) 1 MG TABLET PO SCH ×2 (16:30→17:20)
[2023-02-27] MEDS: ASPIRIN 81 MG TAB.CHEW PO SCH ×2 (16:30→17:20)
[2023-02-27 20:20] VITALS: BP 130/67; TEMP 98.8; O2SAT 97
[2023-02-27] MEDS: MIRTAZAPINE 15 MG TABLET PO SCH (21:12)
[2023-02-28] MEDS: IPRATROPIUM NEB FS 0.5 MG/2.5 ML AMPUL.NEB NEB SCH ×2 (01:30→07:35)
[2023-02-28] MEDS: ALBUTEROL FS 2.5 MG/3 ML VIAL.NEB NEB SCH ×2 (01:30→07:35)
[2023-02-28 07:41] LABS: BASOPHILS % (AUTO) 0.3 % (0.0-2.0); EOSINOPHILS # (AUTO) 0.1 K/uL (0.0-0.7); HEMATOCRIT 37 % (39-51); LYMPHOCYTES # (AUTO) 1.2 K/uL (0.8-4.8); LYMPHOCYTES % (AUTO) 20.7 % (20.0-44.0); MEAN CORPUSCULAR HEMOGLOBIN 28 PG (26.0-33.0); MEAN CORPUSCULAR HGB CONC 32 g/dl (31.0-36.0); MEAN CORPUSCULAR VOLUME 86 fL (80-96); MONOCYTES # (AUTO) 0.5 K/uL (0.1-1.30); MONOCYTES % (AUTO) 8.9 % (2.0-12.0); NEUTROPHILS # (AUTO) 4.1 K/uL (1.8-8.9); NEUTROPHILS % (AUTO) 69.1 % (43.0-81.0); PLATELET COUNT (AUTO) 134 K/uL (150-450); RED BLOOD CELL COUNT(AUTO) 4.31 MIL/uL (4.5-6.0); RED CELL DISTRIBUTION WIDTH 18.9 % (11.5-15.0); WHITE BLOOD COUNT (AUTO) 5.9 K/uL (4.3-11.0)
[2023-02-28] MEDS: BLOOD SUGAR DIAGNOSTIC 1 EACH STRIP IN SCH ×2 (07:54→12:00)
[2023-02-28 08:00] VITALS: BP 108/64; TEMP 97.9; O2SAT 100
[2023-02-28] MEDS: PANTOPRAZOLE 40 MG TABLET.DR PO SCH (08:46)
[2023-02-28] MEDS: ERGOCALCIFEROL (VITAMIN D 2) 50,000 UNIT CAPSULE PO SCH (08:47)
[2023-02-28] MEDS: BISACODYL (5 MG) 5 MG TABLET.DR PO SCH (08:47)
[2023-02-28] MEDS: CLOPIDOGREL BISULFATE 75 MG TABLET PO SCH (08:47)
[2023-02-28] MEDS: LIPASE/PROTEASE/AMYLASE 1 EACH CAPSULE.DR PO SCH ×2 (08:47→13:19)
[2023-02-28] MEDS: DOCUSATE SODIUM 100 MG CAPSULE PO SCH (08:47)
[2023-02-28] MEDS: GLUCERNA SHAKE 237 ML CAN PO SCH (08:47)
[2023-02-28] MEDS: CARVEDILOL 6.25 MG TABLET PO SCH (08:49)
[2023-02-28] MEDS: LINAGLIPTIN 5 MG TABLET PO SCH (08:50)
[2023-02-28] MEDS: AMLODIPINE BESYLATE 10 MG TABLET PO SCH (08:50)
[2023-02-28] MEDS: RANOLAZINE 500 MG TAB.ER.12H PO SCH (08:50)
[2023-02-28] MEDS: ESCITALOPRAM OXALATE (10 MG) 10 MG TABLET PO SCH (08:50)
[2023-02-28 09:00] VITALS: BP 108/64
[2023-02-28] MEDS: NITROGLYCERIN PATCH 0.2 MG/HR PATCH.TD24 TD SCH (09:00)
== END 2023-02-28 15:30 | DRG 885 ==
LOC: ER 14:49 → GPS 18:10
PROVIDERS: ADMIT Psychiatry & Neurology Psychiatry; ATTEND Nurse Practitioner Acute Care
DX: F39 Unspecified mood [affective] disorder (principal); N18.9 Chronic kidney disease, unspecified; N17.0 Acute kidney failure with tubular necrosis; E11.65 Type 2 diabetes mellitus with hyperglycemia; F03.93 Unspecified dementia, unspecified severity, with mood disturbance; E87.1 Hypo-osmolality and hyponatremia; K90.9 Intestinal malabsorption, unspecified; F03.911 Unspecified dementia, unspecified severity, with agitation; F03.918 Unspecified dementia, unspecified severity, with other behavioral disturbance; F29 Unspecified psychosis not due to a substance or known physiological condition; I25.119 Atherosclerotic heart disease of native coronary artery with unspecified angina pectoris; I12.9 Hypertensive chronic kidney disease with stage 1 through stage 4 chronic kidney disease, or unspecified chronic kidney disease; Z95.1 Presence of aortocoronary bypass graft; E78.5 Hyperlipidemia, unspecified; D63.8 Anemia in other chronic diseases classified elsewhere; M10.9 Gout, unspecified; E11.22 Type 2 diabetes mellitus with diabetic chronic kidney disease; H91.90 Unspecified hearing loss, unspecified ear; J44.9 Chronic obstructive pulmonary disease, unspecified; I25.10 Atherosclerotic heart disease of native coronary artery without angina pectoris; M89.8X9 Other specified disorders of bone, unspecified site; Z79.899 Other long term (current) drug therapy; Z79.82 Long term (current) use of aspirin; Z79.02 Long term (current) use of antithrombotics/antiplatelets
CPT/HCPCS: 36415; 70450-TC; 80048-TC; 80053-TC; 80061-TC; 80076-TC; 82550-TC; 82607-TC; 82962-TC; 83735-TC; 83921; 83970; 84100-TC; 84155; 84165; 84439-TC; 84443-TC; 85025-TC; 94799-TC; 97112-TC; 97116-TC; 97530-TC; G0480; J1815

== ENCOUNTER 2023-07-03 21:27 | Emergency (ER) | payer MEDICARE, OTHER ==
[~2023-07-03] VITALS: Ht 172.7 cm; Wt 72.6 kg
[~2023-07-03 21:27] MED LIST: ACET-868 PO; ACLI1AER INH; AMLO-213 PO; ASPI-1169 PO; BISA10SU11 RC; BISA5TAB10 PO; BUDE10.26 INH; BUME2TAB7 PO; CARV10CP PO; CLOP75TA15 PO; COLE625T9 PO; DICL100G34 TP; DOCU-141 PO; EPOE200011 SQ; ERGO500093 PO; ESCI20TA PO; EVOL140S2 SQ; FEBU40TA PO; GUAI100S11 PO; IPRA3AMP23 IH; LANS30CA56 PO; LINA290C PO; LINA5TAB PO; LIPA1CAP15 PO; LORA-258 PO; MAGN400O6 PO; MELA5TAB PO; NA P133E RC; NITR0.4T48 SL; NITR1PAT65 TP; NYST15CR TP; POTA8TAB3 PO; RANO10003 PO; TRAZ-182 PO
[2023-07-03 21:34] VITALS: TEMP 98.6
[2023-07-03 22:08] LABS: HEMOGLOBIN 9.5 g/dL (13.5-17.5); WHITE BLOOD COUNT (AUTO) 7.5 K/uL (4.3-11.0)
[2023-07-03 22:15] LABS: CARBON DIOXIDE 28 mmol/L (21-32); CHLORIDE 95 mmol/L (98-107); CREATININE 1.6 mg/dL (0.6-1.3); GLUCOSE 129 mg/dL (74-106); SODIUM SERUM 132 mmol/L (136-145); UREA NITROGEN, BLOOD 20 mg/dL (7-18)
[2023-07-03 22:34] LABS: BASOPHILS % (AUTO) 0.3 % (0.0-2.0); EOSINOPHILS # (AUTO) 0.5 K/uL (0.0-0.7); EOSINOPHILS % (AUTO) 6.6 % (0.0-6.0); HEMATOCRIT 28 % (39-51); LYMPHOCYTES # (AUTO) 1.3 K/uL (0.8-4.8); LYMPHOCYTES % (AUTO) 17.8 % (20.0-44.0); MEAN CORPUSCULAR HEMOGLOBIN 31 PG (26.0-33.0); MEAN CORPUSCULAR HGB CONC 34 g/dl (31.0-36.0); MEAN CORPUSCULAR VOLUME 90 fL (80-96); MONOCYTES # (AUTO) 0.6 K/uL (0.1-1.30); MONOCYTES % (AUTO) 8.4 % (2.0-12.0); NEUTROPHILS % (AUTO) 66.9 % (43.0-81.0); PLATELET COUNT (AUTO) 191 K/uL (150-450); RED BLOOD CELL COUNT(AUTO) 3.11 MIL/uL (4.5-6.0); RED CELL DISTRIBUTION WIDTH 14.6 % (11.5-15.0)
[2023-07-03 23:11] LABS: APPEARANCE,URINE CLEAR (CLEAR); BILIRUBIN,URINE NEGATIVE (NEGATIVE); BLOOD, URINE NEGATIVE Ery/uL (NEGATIVE); COLOR,URINE YELLOW (YELLOW); KETONES,URINE NEGATIVE (NEGATIVE); LEUKOCYTE ESTERASE ,URINE NEGATIVE (NEGATIVE); NITRITE, URINE NEGATIVE (NEGATIVE); PROTEIN,URINE NEGATIVE (NEGATIVE); UGLUCOSE NEGATIVE (NEGATIVE); UROBILINOGEN,URINE 0.2 EU/dL (0.2)
[2023-07-04] MEDS: POTASSIUM CHLORIDE 20 MEQ TAB.PRT.SR PO ONE (00:19)
[2023-07-04 01:16] VITALS: BP 132/67; O2SAT 97
== END 2023-07-04 01:16 ==
LOC: ER 21:49
DX: S01.111A Laceration without foreign body of right eyelid and periocular area, initial encounter (principal); S81.011A Laceration without foreign body, right knee, initial encounter; F03.90 Unspecified dementia, unspecified severity, without behavioral disturbance, psychotic disturbance, mood disturbance, and anxiety; I10 Essential (primary) hypertension; E11.9 Type 2 diabetes mellitus without complications; Z79.82 Long term (current) use of aspirin; Z79.899 Other long term (current) drug therapy; W18.39XA Other fall on same level, initial encounter; Y93.89 Activity, other specified; Y92.89 Other specified places as the place of occurrence of the external cause; Y99.8 Other external cause status
CPT/HCPCS: 36415; 70450-TC; 70486-TC; 72125-TC; 73130-TC; 73564-TC; 80048-TC; 85025-TC